=== PATIENT | female | born 1980 | race Caucasian/White ===

== ENCOUNTER 2019-09-03 04:31 | Emergency (ER) | payer MEDICAID, OTHER ==
[~2019-09-03] VITALS: Ht 154.9 cm; Wt 56.7 kg
[2019-09-03 04:36] VITALS: BP 103/68
--- NOTE | 2019-09-03 04:36 | NUR ---
PT AMBULATED TO BED #11
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
[2019-09-03] MEDS: HYDROcodone/APAP 5/325 MG 1 TAB TAB PO ONE (05:42)
--- NOTE | 2019-09-03 05:50 | NUR ---
PT TAKEN TO CT VIA WHEELCHAIR
--- NOTE | 2019-09-03 05:58 | NUR ---
PT RETURNED FROM CT
[2019-09-03 08:15] VITALS: BP 124/65
== END 2019-09-03 08:15 | disposition home or self-care (01) ==
LOC: MED 04:31
DX: S09.90XA Unspecified injury of head, initial encounter (principal); Y04.8XXA Assault by other bodily force, initial encounter; Y93.89 Activity, other specified; Y92.89 Other specified places as the place of occurrence of the external cause; Y99.8 Other external cause status
CPT/HCPCS: 70450; 81002; 81025; 99284

== ENCOUNTER 2022-09-06 17:45 | Emergency (ER) | payer MEDICAID, OTHER ==
[~2022-09-06] VITALS: Ht 154.9 cm; Wt 61.3 kg
[2022-09-06 18:14] VITALS: BP 103/78
[2022-09-06] MEDS ORDERED: OFLO5SOL27 OT (20:54)
[2022-09-06 21:00] VITALS: BP 103/78
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
--- NOTE | 2022-09-06 22:05 | NUR ---
Called no show in lobby or outside.
== END 2022-09-06 21:00 | disposition home or self-care (01) ==
LOC: MED 17:45
DX: H10.9 Unspecified conjunctivitis (principal); Z79.2 Long term (current) use of antibiotics
CPT/HCPCS: 99283